=== PATIENT | male | born 1935 | race Caucasian/White ===

== ENCOUNTER → 2016-12-01 | Day surgery (SDC) | payer OTHER ==
[~2016-12-01] MED LIST: ATROPINE SULFATE 1 MG/10 ML SYR ONE; BACITRACIN IRRIGATION/NS 50,000 UNITS/1,000 ML BTL IRR ONE; BUPIVACAINE 0.5% 30 ML SDV ONE; D50W 25 GM/50 ML VIAL ONE; DIAZEPAM 5 MG TAB PO ONE; LIDOCAINE 1% 30 ML SDV ONE; MIDAZOLAM 2 MG/2 ML VIAL ONE; NS 1,000 ML IV ONE; VANCOMYCIN HCL/NORMAL SALINE 250 ML IV ONE; ceFAZolin 2 GM/DEXTROSE 100 ML IV ONE; diphenhydrAMINE 25 MG CAP PO ONE; fentaNYL 100 MCG/2 ML INJ ONE
--- NOTE | 2016-12-01 09:44 | CPEKG ---
Heart Rate: 76 RR Interval: 789 P-R Interval: 120 QRSD Interval: 140 QT Interval: 416 QTC Interval: 468 P Ancram: 106 QRS Ancram: -77 T Wave Ancram: 100 EKG Severity - ABNORMAL ECG - EKG Impression: ATRIAL-VENTRICULAR DUAL-PACED COMPLEXES Electronically Signed By: Myah Arevalo 01-Dec-2016 09:51:02
[2016-12-01 10:13] LABS: % IMMATURE GRANULYOCYTES 0.3 % (0.0-1.1); ABSOLUTE IMMATURE GRANULOCYTES 0.02 10^3/uL (0.00-0.10); ADD DIFF? NO; ADD MORPH? NO; ADD SCAN? NO; ATYPICAL LYMPHOCYTE FLAG 10 (0-99); FRAGMENT RBC FLAG 0 (0-99); HEMATOCRIT 38.4 % (40.0-51.0); HEMOGLOBIN 12.1 g/dL (13.7-17.5); LEFT SHIFT FLG 0 (0-99); LIPEMIA HEMOLYSIS FLAG 80 (0-99); MEAN CELL HEMOGLOBIN 27.2 pg (27.9-34.1); MEAN CELL HEMOGLOBIN CONCENTR. 31.5 g/dL (32.4-36.7); MEAN CELL VOLUME 86.3 fL (81.5-99.8); MEAN PLATELET VOLUME 10.4 fL (8.7-11.7); PLATELET CLUMPS FLAG 10 (0-99); PLATELET COUNT 195 10^3/uL (150-400); RED BLOOD CELL COUNT 4.45 10^6/uL (4.40-6.38); RED CELL DISTRIBUTION WIDTH 13.6 % (11.5-15.2)
[2016-12-01 10:26] LABS: INR 2.75 (0.83-1.16); PROTIME(PATIENT) 29.4 SEC (12.0-15.0)
[2016-12-01 10:38] LABS: ANION GAP 9 mEq/L (8-16); CALCIUM 8.6 mg/dL (8.5-10.4); CARBON DIOXIDE 34 mEq/l (22-31); CHLORIDE 105 mEq/L (97-110); CREATININE 0.9 mg/dL (0.7-1.3); GLOMERULAR FILTRATION RATE > 60; GLUCOSE 100 mg/dL (70-100); POTASSIUM 3.7 mEq/L (3.5-5.2); SODIUM 148 mEq/L (134-144)
--- NOTE | 2016-12-07 08:53 | EPPROC ---
Electrophysiology Procedure Note: PROCEDURE PERFORMED: 1. Explantation of an A-V Implantable Cardioverter Defibrillator 2. Implantation of an A-V Implantable Cardioverted Defibrillator INDICATION: VT Cardiomyopathy [facility] Advisory PROCEDURE NOTE: Patient presented to the cardiac catheterization laboratory in a fasting, postabsorptive state. CCL RN administered sedation. The left infraclavicular area was prepped and draped in the usual sterile fashion. Lidocaine plus bupivacaine was used for local anesthesia. 5Fr R femoral vein access had to be achieved because the patient had very poor peripheral IV. Using a combination of blunt and sharp dissection and electrocautery, the dissection was carried down to the prepectoral fascia and the existing ICD pocket was opened. The ICD generator was disconnected from the leads and the lead thresholds and impedance were checked. The ICD pocket was copiously irrigated with antibiotic solution. The pocket was again inspected for any bleeding. The leads were attached to the ICD securely. The ICD was inserted into the pocket and secured in place with a nonabsorbable suture. Defibrillation testing was not performed. The ICD pocket was closed in 3 layers with absorbable monocryl sutures and denisa. Appropriate dressing was applied. The patient left the cardiac catheterization laboratory in stable condition. Serial Numbers: 1. Implanted Device: [facility] UNIFY 3357-40C. [id number] 2. Atrial Lead: MDT 4076/45. SN:[id number]. DOI: 06-23-09 3. Ventricular Lead: SJM DURATA, 7121/60. SN: [id number]. DOI: 06-23-09 4. Coronary sinus Lead: SJM 1058T. SN: [id number]. DOI: 06-23-09 5. Removed Device: [facility] 3257-40. SN: [id number]. DOI: 05-14-2013 Stimulation Thresholds & Impedance Measurements: 1. Atrial Lead: 1.0V@0.5ms / 1mV / 300 OHM 2. Ventricular Lead: 0.75V@0.5ms / 9.7mV / 430 ohm. HV 47 ohm 3. Coronary sinus Lead: 2.0V@0.5ms / 680 ohm Defibrillation testing: Not done Pacing Parameters: 1. Pacing mode: DDTR 2. Lower rate: 70 3. Upper tracking rate: 110 4. Upper sensor rate: 110 Tachycardia therapy parameters: VF zone : Detection 222 bpm First therapy ATP x 1 while charging, 36Joule Subsequent therapies 40 x 5Joule VT zone : Detection 169bpm First therapy burst pacing at 85% tachycardia CL, 12 beats, 2sequences Second therapy 36 Joule Subsequent therapies 40 x 3Joule Patient Problems: Problems Problem Status Diagnosed Cardiomyopathy Acute
== END | disposition home or self-care (01) ==
LOC: FCATH 08:46
PROVIDERS: ATTEND Internal Medicine Cardiovascular Disease
PROC: 0JH608Z Insertion of Defibrillator Generator into Chest Subcutaneous Tissue and Fascia, Open Approach (ICD-10-PCS; principal; 2016-12-01)
PROC: 0JPT0PZ Removal of Cardiac Rhythm Related Device from Trunk Subcutaneous Tissue and Fascia, Open Approach (ICD-10-PCS; principal; 2016-12-01)
DX: Z45.010 Encounter for checking and testing of cardiac pacemaker pulse generator [battery] (principal); E11.9 Type 2 diabetes mellitus without complications; I50.9 Heart failure, unspecified
CPT/HCPCS: C1882; J0461; J2250; J3010; J3370

== ENCOUNTER → 2017-02-03 | Outpatient (CLI) | payer OTHER | LOC: BHLMT 14:00 | PROVIDERS: ATTEND Internal Medicine Cardiovascular Disease | DX: I42.9 Cardiomyopathy, unspecified (principal); I50.9 Heart failure, unspecified; I25.10 Atherosclerotic heart disease of native coronary artery without angina pectoris | CPT/HCPCS: 93306-PO ==

== ENCOUNTER → 2017-07-06 | Outpatient (CLI) | payer OTHER | LOC: BHFA 14:45 | PROVIDERS: ATTEND Internal Medicine Cardiovascular Disease | DX: I48.91 Unspecified atrial fibrillation (principal); I47.2 Ventricular tachycardia; Z95.810 Presence of automatic (implantable) cardiac defibrillator; I25.5 Ischemic cardiomyopathy ==